=== PATIENT | male | born 1975 | race Caucasian/White ===

== ENCOUNTER 2018-08-15 21:13 | Emergency (ER) | payer SELFPAY ==
[~2018-08-15] VITALS: Ht 180.3 cm; Wt 149.7 kg
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
[2018-08-15 23:13] VITALS: BP 122/78
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
== END 2018-08-15 23:14 | disposition home or self-care (01) ==
LOC: EDUNIT# 21:13 → ER 21:14
DX: R51 Headache (principal); M54.9 Dorsalgia, unspecified; M54.2 Cervicalgia; V49.60XA Unspecified car occupant injured in collision with unspecified motor vehicles in traffic accident, initial encounter
CPT/HCPCS: 70450; 72125; 72128

== ENCOUNTER → 2019-07-04 | Outpatient (CLI) | payer OTHER | LOC: RAD 08:12 | PROVIDERS: ATTEND Family Medicine | DX: M54.2 Cervicalgia (principal); V89.2XXA Person injured in unspecified motor-vehicle accident, traffic, initial encounter; Z53.8 Procedure and treatment not carried out for other reasons ==

== ENCOUNTER 2021-03-11 09:56 | Outpatient (CLI) | payer OTHER | END 2021-03-11 10:38 | disposition home or self-care (01) | LOC: INFUSION 09:56 | PROVIDERS: ATTEND Nurse Practitioner Family | DX: U07.1 COVID-19 (principal) ==

== ENCOUNTER 2022-09-14 05:42 | Outpatient (CLI) | payer BC, OTHER ==
[~2022-09-14] VITALS: Ht 180.3 cm; Wt 153.2 kg
[2022-09-15] MEDS ORDERED: PROP80TA3 PO (11:58)
[2022-09-15] MEDS ORDERED: LISI10TA25 PO (11:58)
== END 2022-09-15 12:02 | disposition home or self-care (01) ==
LOC: PREOP 05:42
PROVIDERS: ATTEND Surgery
DX: Z01.818 Encounter for other preprocedural examination (principal)

== ENCOUNTER 2022-09-19 08:41 | Day surgery (SDC) | payer BC ==
[~2022-09-19] VITALS: Ht 180.3 cm; Wt 153.2 kg
[~2022-09-19 08:41] MED LIST: LISI10TA25 PO; PROP80TA3 PO
[2022-09-19] MEDS ORDERED: LACTATED RINGERS 1,000 ML IV STA (08:50)
[2022-09-19 09:19] VITALS: BP 131/80
--- NOTE | 2022-09-19 09:31 | Progress Note-Pre Operative ---
Pre-Operative Progress Note Date of Available H&P: Sep 08, 2022 Date H&P Reviewed: Sep 19, 2022 Time H&P Reviewed: 09:29 History & Physical: H&P Reviewed, Patient Examed, No changes noted Pre-Operative Diagnosis: +LIAM Restrepo DO Sep 19, 2022 09:31
[2022-09-19] MEDS ORDERED: PROPOFOL INJECTION 50 ML IV ONE ×2 (10:21→10:53)
[2022-09-19] MEDS ORDERED: LIDOCAINE 1% INJ 20 ML VIAL ONE (10:48)
[2022-09-19 10:55] VITALS: BP 104/63
--- NOTE | 2022-09-19 10:57 | Progress Note-Post Operative ---
Post-Operative Progess Note Surgeon (s)/Clinical Study Manager (s) Surgeon LIAM WALTERS DO Clinical Study Manager: ZELALEM Ha student Pre-Operative Diagnosis +Cologuard Post-Operative Diagnosis polyps int hemorrhoids Procedure & Operative Findings Date of Procedure 09/19/22 Procedure Performed/Findings Colonoscopy with snare polypectomy PROCEDURE NOTE: After informed consent was obtained, the patient was brought to the endoscopy suite, placed in bed in left lateral decubitus position. He was administered IV sedation by the ASSURANCE MANAGER INSURANCE who then monitored his vitals the entire time, heart rate, blood pressure and pulse ox and the scope was inserted and on the way in found a polyp in the descending colon. I removed it with the snare. Then, pushed all the way to about 150 cm and pushed into the cecum, took a picture of appendiceal orifice and noted the ileocecal valve. Then slowly withdrew the scope insufflating to look circumferentially at the forbes starting in the cecum and up the ascending c olon. Found another polyp in the ascending colon and removed it with the snare as well. Continued to the hepatic flexure, then down the transverse colon, to the splenic flexure, into the descending colon down in the sigmoid and then into the rectal vault and retroflexed the scope. Took a picture of the internal hemorrhoids. The patient tolerated the procedure. He was recovered in endoscopy suite. Recommended for repeat colonoscopy in 5 years. Anesthesia Type IV sedation by ASSURANCE [employer] Estimated Blood Loss Estimated blood loss (mL): scant Specimens/Packing Specimens Removed asc colon polyp desc colon polyp LIAM WALTERS DO Sep 19, 2022 10:57
--- NOTE | 2022-09-19 10:59 | Endoscopy Discharge Instruct ---
Endo Procedure/Findings Findings 1.: Polyp 2.: Internal Hemorrhoids Discharge Instructions - Activity: You might feel a little sleepy until tomorrow. This is due to the medicine you received to relax you. Until tomorrow, you should: NOT drive a car, operate machinery or power tools. NOT drink any alcoholic beverages. NOT make any important decisions or sign importortant papers. Do not return to work until tomorrow, unless otherwise instructed. Resume previous activities tomorrow. Diet: Start by taking liquids. If you tolerate liquids, advance to solid food. 1.: Colonscopy in 5 years Notify Physician - If you experience excessive bleeding, unusual abdominal pain, fever, or chest pain, contact your doctor immediately. Follow-Up: Other Follow up in my office in a week LIAM WALTERS DO Sep 19, 2022 10:59
[2022-09-19 11:00] VITALS: BP 109/68
[2022-09-19 11:30] VITALS: BP 109/68
[2022-09-19 11:45] VITALS: BP 109/68
--- NOTE | 2022-09-19 12:05 | Anesthesia-General Post-Op ---
MAC Patient Condition Mental Status/LOC: Same as Preop Cardiovascular: Satisfactory Nausea/Vomiting: Absent Respiratory: Satisfactory Pain: Controlled Complications: Absent Post Op Complications Complications None Follow Up Care/Instructions Patient Instructions None needed. Anesthesiology Discharge Order Discharge Order Patient is doing well, no complaints, stable vital signs, no apparent adverse anesthesia problems. No complications reported per nursing. FREDERIC MCKEON CRNA Sep 19, 2022 12:05
== END 2022-09-19 11:45 | disposition home or self-care (01) ==
LOC: ENDO 08:41
PROVIDERS: ATTEND Surgery
DX: Z12.11 Encounter for screening for malignant neoplasm of colon (principal); K63.5 Polyp of colon; K64.8 Other hemorrhoids; G47.33 Obstructive sleep apnea (adult) (pediatric); E66.01 Morbid (severe) obesity due to excess calories; Z68.42 Body mass index [BMI] 45.0-49.9, adult; Z87.891 Personal history of nicotine dependence; Z28.310 Unvaccinated for COVID-19